=== PATIENT | male | born 1950 | race Caucasian/White ===

== ENCOUNTER → 2019-05-01 10:55 | Outpatient (CLI) | payer MEDICARE ==
--- NOTE | 2019-05-02 14:53 | EC ---
PATIENT:SHANNON JUAREZ DATE OF SERVICE: 05/01/19 SEX: M MEDICAL RECORD: [id number] DATE OF : 48 LOCATION:[facility] AGE OF PATIENT: 68 ADMISSION DATE: 05/01/19 REFERRING PHYSICIAN: INTERPRETING PHYSICIAN: KAILYN GOMEZ MD ECHOCARDIOGRAM REPORT ECHO CHARGES 4 ECHO COMPLETE Date: 05/01/19 CLINICAL DIAGNOSIS: AVR/LVH/ABNORMAL EKG H/O HTN ECHOCARDIOGRAPHIC MEASUREMENTS (adult normal given) AC root (d.<3.7cm) 3.5 cm LV Septum d (<1.2 cm> 1.3 cm Valve Excursion 1.3 cm LV Septum (systole) 1.8 cm Left Atria (s.<4.0cm> 5.5 cm LVPW d(<1.2cm) 1.4 cm RV (d.<2.3cm) 3.4 cm LVPW (sytole) 2.1 cm LV diastole(<5.6CM) 5.0 cm MV E-F(>70mm/sec) cm LV systole 2.7 cm LVOT Diameter 1.9 cm MV exc.(>10mm) cm Est.ejection fraction (50-75%) % DOPPLER: LVIT cm/sec A 34.0 cm/sec E 78.0 cm/sec LA cm/sec RVSP 23.2 mmHg LVOT 117 cm/sec AOP1/2T m/s Asc. 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 Valentin TAPE# PACS Pericardial Effusion N DATE OF SERVICE: Adequate 2D, color flow, spectral Doppler, and M-mode. LVH is present. LV internal dimensions are normal. Wall motion is normal. EF is greater than or equal to 55%. Prosthetic tissue aortic valve is noted with acceptable Doppler velocity, no more than trivial AI. Left atrium is dilated at 5.5 cm. Mitral valve shows no prolapse. Mild MR. Right-sided chambers are grossly normal. Trace TR. TRANSINT:[id number] Voice Confirmation ID: [id number] DOCUMENT ID: [id number] ECHOCARDIOGRAM REPORT [id number] SHANNON UJAREZ,KAILYN Capps MD at 1453 CC: [id number] DICTATION DATE: 05/02/19834 VISITOR SERVICES ASSOCIATE: 05/02/19919 DEP CLI 05/01/19 [place] [id number]
== END | disposition home or self-care (01) ==
LOC: D.HCCECHO 10:00
PROVIDERS: ATTEND Internal Medicine Interventional Cardiology
DX: I10 Essential (primary) hypertension (principal)